=== PATIENT | male | born 1965 | race Caucasian/White ===

== ENCOUNTER 2024-03-29 15:45 | Emergency (ER) | payer MEDICAID ==
[~2024-03-29] VITALS: Ht 165.1 cm; Wt 83.6 kg
[2024-03-29 16:12] LABS: BASOPHILS # (AUTO) 0.1 X10'3 (0-0.2); BASOPHILS % (AUTO) 0.7 % (0-1); EOSINOPHILS # (AUTO) 0.1 X10'3 (0-0.9); EOSINOPHILS % (AUTO) 0.6 % (0-6); HEMATOCRIT 38.8 % (42.0-52.0); HEMOGLOBIN 12.4 g/dl (14.0-17.9); LYMPHOCYTES # (AUTO) 1.1 X10'3 (1.1-4.8); LYMPHOCYTES % (AUTO) 8.5 % (21-51); MEAN CORPUSCULAR HEMOGLOBIN 23.4 PG (27.0-31.0); MEAN CORPUSCULAR HGB CONC 31.9 g/dL (33.0-36.5); MEAN CORPUSCULAR VOLUME 73.4 FL (78-98); MEAN PLATELET VOLUME 8.8 FL (7.4-10.4); MONOCYTES # (AUTO) 0.7 X10'3 (0-0.9); MONOCYTES % (AUTO) 5.3 % (2-12); NEUTROPHILS # (AUTO) 11.3 X10'3 (1.8-7.7); NEUTROPHILS % (AUTO) 84.9 % (42-75); PLATELET COUNT 320 X10'3 (140-440); RED BLOOD COUNT 5.28 X10'6 (4.70-6.10); RED CELL DISTRIBUTION WIDTH 15.3 % (11.5-14.5); WHITE BLOOD COUNT 13.3 X10'3 (4.5-11.0)
[2024-03-29 16:23] LABS: ALBUMIN 3.3 G/DL (3.4-5.0); ANION GAP 10 (8-16); BLOOD UREA NITROGEN 6 MG/DL (7-18); BUN/CREATININE RATIO 6.7 (10.0-20.0); CALCIUM 8.8 MG/DL (8.5-10.1); CHLORIDE 97 MMOL/L (99-107); GLUCOSE 148 MG/DL (70-104); PRO BRAIN NATRIURETIC PEPTIDE 885 PG/ML (0-125); SODIUM 135 MMOL/L (135-145); TOTAL CARBON DIOXIDE 28.5 MMOL/L (24-32); eCRCL 80 ML/MIN; eGFR 87 ML/MIN
[2024-03-29 16:24] LABS: POTASSIUM 2.9 MMOL/L (3.5-5.1)
[2024-03-29 18:03] VITALS: TEMP 98.5
[2024-03-29] MEDS ORDERED: iohexol 350MG/ML 100ml bottle IV ONE (20:59)
[2024-03-29] MEDS: potassium Cl 20 mEq SR tablet PO STA (21:20)
[2024-03-29] MEDS: ondansetron 4mg rapidly disintigrating tab PO ONE (21:20)
[2024-03-29] MEDS: levoFLOXACIN 750MG TABLET PO ONE (21:20)
[2024-03-29] MEDS: ipratropium/albuterol 3ml nebule NEB ONE (22:35)
[2024-03-29 22:38] VITALS: PULSE 105; RESP 16; O2SAT 98
[2024-03-29 22:40] VITALS: PULSE 111; RESP 16; O2SAT 100
[2024-03-29] MEDS ORDERED: LEVO-65 PO (22:54)
[2024-03-29 23:07] VITALS: BP_DIAS 131; RESP 20; O2SAT 96
[2024-03-29] MEDS ORDERED: CARV6.253 PO (23:12)
[2024-03-29] MEDS ORDERED: HYDR25TA5 PO (23:12)
[2024-03-29] MEDS ORDERED: METF-436 PO (23:12)
[2024-03-29] MEDS ORDERED: BUDE10.26 INH (23:12)
[2024-03-29] MEDS: lisinopril 10 MG tablet PO ONE (23:12)
[2024-03-29] MEDS ORDERED: ALBU18HF2 INH (23:12)
[2024-03-29] MEDS ORDERED: AMLO10TA PO (23:12)
[2024-03-29] MEDS ORDERED: TIOT4MIS5 IH (23:12)
[2024-03-29] MEDS ORDERED: ATOR80TA PO (23:12)
[2024-03-29] MEDS ORDERED: FERR325T28 PO (23:12)
[2024-03-29] MEDS ORDERED: LOSA100T58 PO (23:12)
[2024-03-29 23:13] VITALS: BP_SYST 218; PULSE 105
[2024-03-29] MEDS: amLODIPine 5mg tablet PO ONE (23:13)
[2024-03-29] MEDS: HYDROchlorothiazide 25mg tablet PO ONE (23:13)
== END 2024-03-29 23:17 | disposition home or self-care (01) ==
LOC: ER 15:45
DX: R06.02 Shortness of breath (principal); Z88.0 Allergy status to penicillin
CPT/HCPCS: 36415; 71045; 71275; 80048; 83880; 84145; 84484; 85025; 93005; 94640; 99285; J7030; Q9967; 94760